=== PATIENT | male | born 1940 | race Caucasian/White ===

== ENCOUNTER 2018-02-24 10:14 | Emergency (ER) | payer MEDICARE, OTHER ==
[2018-02-24 10:41] VITALS: BP 159/82
--- NOTE | 2018-02-24 10:46 | UC ---
UC General HPI - HPI Summary HPI Summary: 78-year-old male presents with onset of left-sided numbness and tingling at 5 PM last evening after shoveling some snow. States he still continues to have the numbness and tingling at present. Denies headache, dizziness, visual changes, speech difficulties, extremity weakness, confusion, chest pain, palpitations, shortness of breath, abdominal pain, nausea, vomiting, diaphoresis. Past medical history significant for hypertension and dyslipidemia. Family history significant for mother with AAA. - History of Current Complaint Chief Complaint: UCGeneralIllness Stated Complaint: LEFT SIDE OF BODY NUMB/TINGLING Time Seen by Provider: 02/24/18 10:28 Hx Obtained From: Patient Onset/Duration: Sudden Onset, Lasting Hours Pain Intensity: 0 Associated Signs & Symptoms: Negative: Abdominal Pain, Back Pain, Cough, Chest Pain, Dizziness, Diaphoresis, Fever, Headache, Nausea, Palpitations, Syncope, Vomiting, Weakness - Allergy/Home Medications Allergies/Adverse Reactions: Allergies Allergy/AdvReac Type Severity Reaction Status Date / Time No Known Allergies Allergy Verified 02/24/18 10:19 Home Medications: Home Medications Atorvastatin* [Lipitor*] mg PO DAILY 02/24/18 [History] Ibuprofen TAB* [Advil TAB*] 400 mg PO BEDTIME 02/24/18 [History Confirmed ] Lisinopril [Lisinopril 2.5 MG-] mg PO DAILY 02/24/18 [History] Vitamin THERAPEUTIC TAB* [Theragran TAB*] 1 tab PO DAILY 02/24/18 [History Confirmed 02/24/18] diPHENhydraMINE PO* [Benadryl PO 25 MG TAB*] 25 mg PO BEDTIME 02/24/18 [History Confirmed 02/24/18] PMH/Surg Hx/FS Hx/Imm Hx Previously Healthy: Yes Endocrine History: Dyslipidemia Cardiovascular History: Hypertension - Surgical History Surgical History: Yes Surgery Procedure, Year, and Place: L4L5 Discectomy and Laminectomy; Prostatectomy; Cholecystectomy; Appendectomy - Family History Family History: AAA (mother) - Social History Occupation: Retired Lives: With Family Alcohol Use: Unknown Substance Use Type: None Smoking Status (MU): Former Smoker Review of Systems All Other Systems Reviewed And Are Negative: Yes Constitutional: Negative: Fever, Chills Skin: Negative: Rash Eyes: Negative: Blurred Vision, Diplopia, Photophobia Respiratory: Negative: Shortness Of Breath, Cough Cardiovascular: Negative: Palpitations, Chest Pain Gastrointestinal: Negative: Abdominal Pain, Vomiting, Nausea Neurological: Positive: Paresthesia, Numbness. Negative: Headache, Weakness Is Patient Immunocompromised?: No Physical Exam - Summary Physical Exam Summary: GENERAL APPEARANCE: Well developed, well nourished, alert and cooperative, and appears to be in no acute distress. HEAD: Atraumatic. normocephalic. EYES: PERRL, EOM intact. Vision is grossly intact. EARS: External auditory canals and tympanic membranes clear, hearing grossly intact. NOSE: No nasal discharge. THROAT: Oral cavity and pharynx normal. No inflammation, swelling, exudate, or lesions. Teeth and gingiva in good general condition. NECK: Neck supple, non-tender without lymphadenopathy. CARDIAC: Normal S1 and S2. No S3, S4 or murmurs. Rhythm is regular. There is no peripheral edema, cyanosis or pallor. Extremities are warm and well perfused. Capillary refill is less than 2 seconds. LUNGS: Clear to auscultation and percussion without rales, rhonchi, wheezing or diminished breath sounds. ABDOMEN: Positive bowel sounds. Soft, nondistended, nontender. No guarding or rebound. No masses or hepatosplenomegally. MUSKULOSKELETAL: ROM intact to all extremities. No joint erythema or tenderness. Normal muscular development. Normal gait. NEUROLOGICAL: CN II-XII intact. Strength and sensation symmetric and intact throughout. Reflexes 2+ throughout. Cerebellar testing normal. SKIN: Skin normal color, texture and turgor with no lesions or eruptions. Vital Signs: Initial Vital Signs Temp 97.8 F 02/24/18 10:35 Pulse 75 02/24/18 10:35 Resp 18 02/24/18 10:35 BP 159/82 02/24/18 10:35 Pulse Ox 97 02/24/18 10:35 Diagnostics - EKG Cardiac Rate: NL Cardiac Rhythm: Sinus: Normal Ectopy: None ST Segment: Normal Course/Dx - Course Course Of Treatment: 78-year-old male presents with onset of left-sided numbness and tingling at 5 PM last evening after shoveling some snow. States he still continues to have the numbness and tingling at present. Denies headache, dizziness, visual changes, speech difficulties, extremity weakness, confusion, chest pain, palpitations, shortness of breath, abdominal pain, nausea , vomiting, diaphoresis. Past medical history significant for hypertension and dyslipidemia. Family history significant for mother with AAA. 12 lead EKG NSR. Vital signs stable. Exam was unremarkable except for a reported sensory deficit on the left side. Based on his symptoms and I'm recommending that he be evaluated in the emergency room for possible CVA. He and his are electing to go by private vehicle with his driving. - Differential Dx - Multi-Symptom Differential Diagnoses: Cardiac Ischemia, CVA, Other - Diagnoses Provider Diagnosis: Left sided numbness Discharge - Sign-Out/Discharge Documenting (check all that apply): Patient Departure All imaging exams completed and their final reports reviewed: No Studies - Discharge Plan Condition: Stable Disposition: HOME-RECOMMEND TO ED Patient Education Materials: Paresthesia (ED) Referrals: Aston Templeton DO [Primary Care Provider] - Additional Instructions: Based on your symptoms I am recommending that you be urgently evaluated in the emergency room. Please go directly to the emergency room. - Billing Disposition and Condition Condition: STABLE Disposition: Home-Recommend to ED - Attestation Statements Provider Attestation: I was available for consult. This patient was seen by the LOREN[facility]. The patient was not presented to, seen by, or examined by me. -Edwin
== END 2018-02-24 10:57 | disposition home health service (06) ==
LOC: UCCORT 10:14
DX: R20.0 Anesthesia of skin (principal); E78.5 Hyperlipidemia, unspecified; I10 Essential (primary) hypertension; Z87.891 Personal history of nicotine dependence
CPT/HCPCS: 93005; 99202; G0463

== ENCOUNTER 2018-02-24 14:17 | Observation (INO) | payer MEDICARE, OTHER ==
[2018-02-24 14:54] LABS: Hematocrit 43 % (42-52); Hemoglobin 14.5 g/dl (14.0-18.0); Mean Corpuscular HGB Conc 34 g/dl (31-36); Mean Corpuscular Hemoglobin 31 pg (27-31); Mean Corpuscular Volume 93 fL (80-94); Mean Platelet Volume 8.2 fL (7.4-10.4); Platelet Count 179 10^3/ul (150-450); Red Blood Count 4.64 10^6/ul (4.00-5.40); Red Cell Distribution Width 13 % (10.5-15); White Blood Count 6.6 10^3/ul (3.5-10.8)
--- NOTE | 2018-02-24 15:05 | ED ---
Neurological HPI - HPI Summary HPI Summary: A 78 year old male brought in by ambulance presents to [facility] with a chief complaint of left sided numbness since 17:00 02/23/18 when he came inside after shoveling snow. He rates his current pain as 0/10. At 14:40 The patient also endorses left sided tingling. He denies DUVAL, neck pain, difficulty swallowing, blurred vision, slurred speech, Fever, Chills, Erythema (eyes), Sore throat, Chest pain, Shortness of Breath, Cough, Abdominal pain, Vomiting, Nausea, Dysuria, Hematuria, Edema, Rash and Dizziness. He has Hx of HTN. His medical record from [place] showed that his Head CT and labs were unremarkable and his BP was 190/88. He claims that his usual BP is 150/60. He denies a FHx of CVA or sz. He claims that 20 years ago he quit smoking. He denies being on bloodthinners. He was given a baby aspirin CHARGE NURSE. He has no FHx fo CVA or sz. He admits to having surgery for cataract removal. - History of Current Complaint Chief Complaint: EDNeurologicalDeficit Stated Complaint: LT SIDE NUMBNESS Time Seen by Provider: 02/24/18 14:20 Hx Obtained From: Patient, Family/Inside Sales Consultant Onset/Duration: Sudden Onset, Started days ago, Still Present Timing: Constant Onset Severity: Moderate Current Severity: Moderate Seizure Severity: Moderate Pain Intensity: 0 Pain Scale Used: 0-10 Numeric Character: Numbness/Tingling - Allergy/Home Medications Allergies/Adverse Reactions: Allergies Allergy/AdvReac Type Severity Reaction Status Date / Time No Known Allergies Allergy Verified 02/24/18 10:19 PMH/Surg Hx/FS Hx/Imm Hx Cardiovascular History: Reports: Hx Hypertension - Cancer History Cancer Type, Location and Year: Prostate 2007 - Surgical History Surgery Procedure, Year, and Place: L4L5 Discectomy and Laminectomy; Prostatectomy; Cholecystectomy; Appendectomy Infectious Disease History: Yes Infectious Disease History: Denies: Traveled Outside the [place] in Last 30 Days - Family History Known Family History: Negative: Seizure Disorder, Other - CVA Family History: AAA (mother) - Social History Alcohol Use: Occasionally Substance Use Type: Reports: None Smoking Status (MU): Never Smoked Tobacco Review of Systems Negative: Fever, Chills Negative: Blurred Vision Negative: Sore Throat Negative: Chest Pain Negative: Shortness Of Breath, Cough Negative: Abdominal Pain, Vomiting, Nausea Negative: dysuria, hematuria Negative: Myalgia - back pain, Edema Negative: Rash Neurological: Negative - difficulty swallowing Positive: Paresthesia - left sided, Numbness - left sided. Negative: Slurred Speech All Other Systems Reviewed And Are Negative: Yes Physical Exam - Summary Physical Exam Summary: Constitutional: Well-developed, Well-nourished, Alert. (-) Distressed Skin: Warm, Dry HENT: Normocephalic; Atraumatic Eyes: Conjunctiva normal Neck: Musculoskeletal ROM normal neck. (-) JVD, (-) Stridor, (-) Tracheal deviation Cardio: Rhythm regular, rate normal, Heart sounds normal; Intact distal pulses; The pedal pulses are 2+ and symmetric. Radial pulses are 2+ and symmetric. (-) Murmur Pulmonary/Chest wall: Effort normal. (-) Respiratory distress, (-) Wheezes, (-) Rales Abd: Soft. (-) Tenderness, (-) Distension, (-) Guarding, (-) Rebound Musculoskeletal: (-) Edema Lymph: (-) Cervical adenopathy Neuro: Alert, Oriented x3, Sensory weakness to left foot. Psych: Mood and affect Normal Triage Information Reviewed: Yes Vital Signs On Initial Exam: Initial Vitals Temp Pulse Resp BP Pulse Ox 99 F 83 22 185/99 94 02/24/18 14:22 02/24/18 14:22 02/24/18 14:22 02/24/18 14:22 02/24/18 14:22 Vital Signs Reviewed: Yes Diagnostics - Vital Signs Vital Signs Temp Pulse Resp BP Pulse Ox 02/24/18 14:24 79 19 185/99 94 02/24/18 14:23 71 21 183/109 94 02/24/18 14:22 99 F 83 22 185/99 94 - Laboratory Result Diagrams: 02/24/18 14:45 02/24/18 14:45 Lab Statement: Any lab studies that have been ordered have been reviewed, and results considered in the medical decision making process. - EKG 14:56 Cardiac Rate: NL - 78 EKG Rhythm: Sinus Rhythm Summary of EKG Findings: NSR at 78 bpm NIH Scale - NIH Scale Level of Consciousness: Alert/Keenly Responsive Ask Patient the Month and His/Her Age: Both Correct Ask Pt to Open/Close Eyes and Waiter/Waitress Second Class/Release Non-Paretic Hand: Both Correctly Best Gaze (Only Horizontal Eye Movement): Normal Visual Field Testing: No Visual Loss Facial Paresis-Pt to Smile & Close Eyes or Grimace Symmetry: Normal/Symmetrical Motor Function - Right Arm: No Drift-Holds 10 Seconds Motor Function - Left Arm: No Drift-Holds 10 Seconds Motor Function - Right Leg: No Drift-Holds 10 Seconds Motor Function - Left Leg: No Drift-Holds 10 Seconds Limb Ataxia-Must be out of Proportion to Weakness Present: Absent Sensory (Use Pinprick to Test Arms/Legs/Trunk/Face): Pinprick Less on Affected Best Language (Describe Picture, Name Items): No Aphasia Dysarthria (Read Several Words): Normal Extinction and Inattention: No Abnormality Total Score: 1 Course/Dx - Course Course Of Treatment: A 78 year old male brought in by ambulance presents to [facility] with a chief complaint of left sided numbness since 17:00 02/23/18 when he came inside after shoveling snow. He rates his current pain as 0/10. At 14: 40 The patient also endorses left sided tingling. He denies DUVAL, neck pain, difficulty swallowing, blurred vision, slurred speech, Fever, Chills, Erythema ( eyes), Sore throat, Chest pain, Shortness of Breath, Cough, Abdominal pain, Vomiting, Nausea, Dysuria, Hematuria, Edema, Rash and Dizziness. He has Hx of HTN. His medical record from [place] showed that his Head CT and labs were unremarkable and his BP was 190/88. He claims that his usual BP is 150/60. He denies a FHx of CVA or sz. He claims that 20 years ago he quit smoking. He denies being on bloodthinners. He was given a baby aspirin CHARGE NURSE. He has no FHx fo CVA or sz. He admits to having surgery for cataract removal. NIH scale was 1 with sensory weakness to left foot. His EKG showed NSR at 78 bpm. After reviewing the patients imaging results Dr. Maldonado recommended the [place] [facility] [place] Dx: CVA, uncontrolled HTN. - Diagnoses Provider Diagnoses: CVA (cerebral vascular accident), Uncontrolled hypertension - Physician Notifications Discussed Care Of Patient With: Haydee Maldonado Time Discussed With Above Provider: 18:30 Instructed by Provider To: Other - Discussed patients results. He recommends [place] [facility] [place] Discharge - Sign-Out/Discharge Documenting (check all that apply): Patient Departure - Admit - Discharge Plan Condition: Stable Disposition: ADMITTED TO [facility] - Attestation Statements Document Initiated by Scribe: Yes Documenting Scribe: Gregorio Man Provider For Whom Scribe is Documenting (Include Credential): Gustavo Celaya MD Scribe Attestation: IGregorio, scribed for Gustavo Celaya MD on 02/24/18 at 2318.
[2018-02-24 15:16] LABS: EGFR Non-African American 61.3 (>60)
[2018-02-24] MEDS ORDERED: Acetaminophen TAB* 325 MG PO PRN (17:17)
[2018-02-24] MEDS ORDERED: Al Hydrox/Mg Hydrox/Simet LIQ* 30 ML UDC PO PRN (17:17)
[2018-02-24] MEDS ORDERED: diPHENhydraMINE PO* 25 MG PO SCH (21:00)
[2018-02-24] MEDS: Heparin VIAL(*) 5000 UNITS/ML VIAL (FIVE THOUSAND) SUBCUT SCH (21:47)
--- NOTE | 2018-02-24 23:20 | HP ---
CC: Dr. Aston Templeton * HISTORY AND PHYSICAL: DATE OF ADMISSION: 02/24/18 PROVIDER: Kenia Appiah NP PRIMARY CARE PROVIDER: Dr. Aston Templeton. ATTENDING PHYSICIAN WHILE IN THE HOSPITAL: Dr. Keisha Godinez * (dictated by Kenia Appiah NP). CHIEF COMPLAINT: Left-sided numbness and tingling. HISTORY OF PRESENT ILLNESS: Mr. Wheat is a 78-year-old male with a past medical history significant for hypertension, hyperlipidemia and a history of prostate cancer, who was seen and evaluated at [facility] today and given the fact that they did not have Neurology on staff, he was transferred here for further evaluation. His CT of the head at [place] did show a lacunar stroke. The patient reports that yesterday he was in his normal state of health. He was shoveling snow and after he completed shoveling the snow he noticed that he had some numbness and tingling to his left arm that progressively got worse and became left-sided numbness. The patient reports that it feels as though his body is cut in half and has numbness and tingling, sensory loss on the entire left side of his body. He denies any difficulty speaking. Denies any difficulty swallowing or eating. He denies any loss of motor sensation to the left side. He denies any recent illnesses or sick contacts. Given his symptoms of the left-sided numbness and tingling, he was transferred from [facility] to our emergency room for further evaluation as they did not have Neurology on staff. PAST MEDICAL HISTORY: Significant for: 1. Hypertension. 2. Hyperlipidemia. 3. History of prostate cancer. PAST SURGICAL HISTORY: 1. Prostatectomy. 2. Appendectomy. 3. Cholecystectomy. 4. Back surgery. 5. Cataract surgery and lens implants. HOME MEDICATIONS: Include: 1. Lisinopril 5 mg p.o. daily. 2. Ibuprofen 400 mg p.o. at bedtime. 3. Atorvastatin 20 mg p.o. daily. 4. Benadryl 25 mg p.o. at bedtime. 5. Theragran multivitamin 1 tab p.o. daily. ALLERGIES: The patient has no known drug allergies. FAMILY HISTORY: No reported history of coronary artery disease or strokes. Father with a history of diabetes. Brother with a history of kidney cancer. SOCIAL HISTORY: He reports he quit smoking approximately 20 years ago. He does report daily alcohol use. Denies any illicit drug use. He is . Surrogate decision maker in the event he is unable to make his own decisions is his , Prema. Her phone number is [phone]. He is a full code. REVIEW OF SYSTEMS: There was no documented fever. There has been no significant weight change. No double vision. There has been no ear drainage, no rhinorrhea, and no sore throat. No chest pain. No orthopnea or nocturnal dyspnea. There was no abdominal pain. No nausea, vomiting, or diarrhea. Denies any dysuria or urinary frequency. No seizures or loss of consciousness. No pruritus or skin ulcerations. He does complain of sensory loss on the left side and numbness and tingling to the left side of his body as well as his left eye does feel tired. PHYSICAL EXAMINATION GENERAL: At this time, Mr. Wheat is a 78-year-old male with a past medical history significant for hypertension, hyperlipidemia and history of prostate cancer, who was transferred from [facility] for further evaluation of left-sided numbness and tingling. He was found to have a lacunar stroke on the CT scan. At this point, he does not appear to be in any acute distress. VITAL SIGNS: Blood pressure was 146/93, heart rate was 78, respirations were 13 , temperature was 99. HEENT: Head is atraumatic, normocephalic. Eyes: EOMs are intact. Sclerae anicteric and not pale. Pupils are equal and reactive to light. Oral mucosa appears to be moist. Tongue is midline. No oropharyngeal erythema. NECK: Supple. LUNGS: Clear to auscultation bilaterally. No wheezes, rales, or rhonchi. CARDIAC: S1, S2. Regular rate and rhythm. No murmurs, rubs, or gallops. ABDOMEN: Soft and nontender. Bowel sounds are present x4. EXTREMITIES: He is able to move all 4 extremities with 5/5 strength. Pedal pulses are +2 bilaterally. Radial pulses are +2 bilaterally. NEUROLOGIC: He is awake, alert, and oriented x3. Handgrips are equal. Tongue is midline. Speech is clear. There are no gross focal deficits noted. He does have sensory deficit on the left side from his head to his toes. He reports a feeling of tingling and numbness. Pupils are 2 mm and equal bilaterally. Smile is equal. [id number] is intact. Ylri-da-oipu is intact. Shoulder shrug is intact. There are no gross focal deficits noted. SKIN: Intact. DIAGNOSTIC STUDIES/LAB DATA: WBCs were 6.6, RBCs 4.64, hemoglobin of 14.5, hematocrit was 43, platelet count 179. Sodium 139, potassium 4.0, chloride 107 , carbon dioxide was 24, anion gap was 8, BUN was 25, creatinine 1.15, glucose was 104, calcium 9.1, magnesium 1.9. Total bili was 0.80, ASTs were 28, ALTs were 23. Troponin 0.01. He did have a CT of the head at [facility]. Carotid Doppler is currently pending. EKG shows sinus rhythm at a rate of 78. ASSESSMENT AND PLAN: At this time, Mr. Wheat is a 78-year-old male with a past medical history significant for hypertension, hyperlipidemia and history of prostate cancer, who was transferred from [facility] for further evaluation of a lacunar stroke. We were asked to see and evaluate him due to his stroke. He will be admitted under observation for: 1. Cerebrovascular accident. He has lacunar stroke. He was seen and evaluated by Dr. Maldonado from Neurology during his stay in the emergency room. We will continue on aspirin 81 mg p.o. daily. He will have an MRI of the brain and an MRA. He will have bilateral carotid ultrasounds. We will get a transthoracic echo with a bubble study tomorrow. We will continue on aspirin 81 mg p.o. daily, atorvastatin 20 mg p.o. daily and follow with Dr. Maldonado's recommendations. He will have neuro checks q.2 hours. 2. Hypertension. We will continue on lisinopril 5 mg p.o. daily. 3. Hyperlipidemia. We will continue his atorvastatin 20 mg p.o. daily. I will repeat a lipid panel in the a.m. 4. FEN: He can have a heart-healthy diet. 5. DVT prophylaxis: I will place him on heparin subcu after the MRI and conclusion of no bleed. 6. Code status: He is a full code. TIME SPENT: Time spent on this admission was 60 minutes, greater than half of that time was spent [id number] with the patient obtaining my history and physical, the other half of the time was spent going over my plan of care and implementing my plan of care. I have discussed this with my attending, Dr. Keisha Godinez; she is in agreement with my plan. KENIA APPIAH, SYSTEMS PROJECT MANAGER [id number]/[facility] #: [id number] [place]
--- NOTE | 2018-02-24 23:20 | CONS ---
CONSULTATION NOTE: DATE OF CONSULT: 02/24/18 CONSULTING PROVIDER: Dr. Celaya. REASON FOR CONSULT: Left-sided numbness. CHIEF COMPLAINT: Left face, arm, leg numbness. HISTORY OF PRESENT ILLNESS: Mr. Hung Wheat is a pleasant 78-year-old right- handed man with a past medical history significant for hypertension, dyslipidemia, former tobacco use, who presented with sudden onset of left-sided numbness and tingling sensation. The patient was last known well at 1655 on . At 1700, the patient developed sudden onset numbness and a tingling sensation of the left arm and it progressed to involve the entire left side of the face and entire left leg at approximately 1800. He was shoveling snow during that time. His blood pressure has been running in the systolics of 150s- 160s. He is aspirin naive. The patient woke up this morning today and went to [facility] for further evaluation. He wanted to see if he can get into see Dr. Paiz at the office, but instead was transferred to [facility] for further evaluation. NIH Stroke Scale was 1 for decreased sensation on the left face, arm, and leg with a positive hyper-paresthesias. The patient denied any headaches, visual disturbance, neck pain, chest pain, shortness of breath, abdominal discomfort, nausea, vomiting, impairment in his bowel or bladder functions. He denied any weakness. A CT head at [facility] was reported to be unremarkable. We do not have any intracranial images available at this time. PAST MEDICAL HISTORY: Hypertension, dyslipidemia. PAST SURGICAL HISTORY: Prostatectomy, appendectomy, lumbar spine laminectomy, tonsillectomy, cataract surgery, cholecystectomy. MEDICATIONS: 1. Vitamin supplements 1 tablet by mouth daily. 2. Lisinopril 5 mg by mouth daily. 3. Atorvastatin 20 mg by mouth daily. 4. Benadryl 25 mg p.o. at bedtime. 5. Ibuprofen 400 mg p.o. at bedtime. ALLERGIES: No known drug allergies. FAMILY HISTORY: There is no family history of stroke or seizures. His father of congestive heart failure and mother after an abdominal aortic rupture. SOCIAL HISTORY: The patient is retired. 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 REVIEW OF SYSTEMS: A 14-point review of systems was obtained and otherwise negative except for what was mentioned in the HPI. PHYSICAL EXAM: Vitals: Temperature 99.0, heart rate 83, respiratory rate 22, oxygen saturation of 94, blood pressure of 185/99. General: Well-nourished, well- developed man, in no acute distress. Head is atraumatic, normocephalic. Eyes: Conjunctivae/corneas are clear. Neck is supple and symmetrical with no carotid bruits. Lungs are clear to auscultation bilaterally. Cardiovascular: Regular rate and rhythm with normal S1, S2. Radial pulses are palpable. Extremities: Normal range of motion with no cyanosis. Skin: No skin lesions or lacerations. Psych: Affect is broad and normal mood. Easy to establish rapport. Neurological Examination: Mental Status: Awake, alert, and oriented to person, place, time, and general circumstances. Speech and language including expression, naming, repetition, and comprehension were assessed and found to be normal. Cranial Nerves: Normal confrontation testing bilaterally. Pupils are mid range and reactive to light. Normal consensual response. Sensation is intact on the forehead, cheeks, and jaw region bilaterally. There is no facial droop. He is able to hear throughout the history process. Symmetrical palatal elevation. Normal strength against resistance. Tongue is symmetrical and midline with no atrophy or fasciculation. Motor Examination: No abnormal movements, but there is positive pronator drift on the left. Normal bulk and tone throughout. 5/5 strength in the proximal and distal upper and lower extremities. Reflexes: Right/left, brachioradialis 1/1, biceps 1/1, triceps 1/1, patella 1/1, ankle 1/1, plantar flexor/flexor. Sensation is intact to light touch and pinprick throughout except for he has a distal to proximal sensory gradient in the mid shins bilaterally. He has absent vibratory sensation at the great toes and medial malleolus, but intact proprioception at the great toes. Coordination: Normal [id number] and rapid alternating movements. Gait did not assess as the patient is in critical bay in the emergency department. DIAGNOSTIC STUDIES/LAB DATA: WBC of 6.6, hemoglobin 14.5, hematocrit 43, platelets of 179. Potassium 4.0, sodium 139, chloride 107, carbon dioxide of 24 , BUN of 25, creatinine 1.15, glucose of 104. Electrocardiogram that was done today showed there was normal sinus rhythm. IMPRESSION: 1. Mr. Hung Wheat is a 78-year-old man with history of hypertension and dyslipidemia, who presented with sudden-onset left hemiparesthesias. I suspect the patient has a right thalamic ischemic infarction involving an occlusion to the small perforating vessels. Other localizing areas would be possibly the right parietal hemisphere, but that typically does not cause symmetrical paresthesias in the contralateral limb. He has no history of neck pain, hence it is unlikely that this can be related to a cervical spondylosis with radiculopathy. He has no evidence of myelopathy on examination. I do not suspect that he has sensory seizures as he has no risk factors for epilepsy. NIH Stroke Scale is 1. He was not a candidate for IV tPA or mechanical thrombectomy as he is outside the therapeutic window and his deficits are extremely mild. This type of stroke is mostly related due to chronic hypertension. 2. Chronic hypertension. He takes lisinopril at home. 3. Dyslipidemia. PLAN/RECOMMENDATIONS: Admit to the hospital service for further stroke workup and poststroke monitoring. Neuro checks every 4 hours. I have ordered an MRI of the brain without contrast, MRA of the head without contrast, and a carotid sonogram. I also ordered a 2D transthoracic echo with bubble study. Please place on telemetry. Check a fasting lipid panel, TSH, B12, and A1c level. He is aspirin naive, so we will start him on aspirin 81 mg starting tomorrow. He had received aspirin 325 at [place]. Please do a bedside swallow evaluation. Consult PT/OT to evaluate and treat. Allow for permissive hypertension with a systolic blood pressure of less than 220 and diastolic blood pressure less than 110. We discussed stroke education and counseling with the patient and his spouse, Prema, at bedside. We discussed the importance in controlling his blood pressure. Please do not place a urinary catheter unless there is evidence of urinary retention. VTE prophylaxis with subcutaneous heparin injection 5000 units t.i.d. There is no indication for anticoagulation therapy since the patient does not have evidence of atrial fibrillation; however, further evaluation with an echo to look for any atrial thrombus was recommended. I have discussed the above-mentioned recommendations with Mr. Wheat, his spouse Prema, and Kenia, who will be the admitting provider. The all agreed with the above recommendations. I will continue to follow. [id number]/[facility] #: [id number] CHAVA
--- NOTE | 2018-02-25 00:01 | PN ---
Progress Note - Progress Note Date of Service: 02/25/18 Note: Paged for new neuro findings - now with protonator drift. Will check head ct. Already being managed for CVA
[2018-02-25] MEDS: Heparin VIAL(*) 5000 UNITS/ML VIAL (FIVE THOUSAND) SUBCUT SCH ×2 (05:30→14:27)
[2018-02-25 06:12] LABS: ABS Basophils 0 10^3/ul (0-0.2); ABS Eosinophils 0.2 10^3/ul (0-0.6); ABS Lymphocytes 1.3 10^3/ul (1.0-4.8); ABS Monocytes 0.5 10^3/ul (0-0.8); ABS Neutrophils 3.7 10^3/ul (1.5-7.7); ABS Nucleated RBC 0 10^3/ul; Eosinophil % 2.7 %; Hematocrit 42 % (42-52); Hemoglobin 13.8 g/dl (14.0-18.0); Lymphocyte % 23.4 %; Mean Corpuscular HGB Conc 33 g/dl (31-36); Mean Corpuscular Hemoglobin 31 pg (27-31); Mean Corpuscular Volume 94 fL (80-94); Mean Platelet Volume 8.3 fL (7.4-10.4); Nucleated Red Blood Cells % 0.1; Platelet Count 146 10^3/ul (150-450); Red Blood Count 4.42 10^6/ul (4.00-5.40); Red Cell Distribution Width 13 % (10.5-15); White Blood Count 5.8 10^3/ul (3.5-10.8)
[2018-02-25 06:28] LABS: EGFR Non-African American 62.6 (>60)
[2018-02-25] MEDS ORDERED: Vitamin THERAPEUTIC TAB PO SCH (09:00)
[2018-02-25] MEDS ORDERED: Aspirin EC TAB* 81 MG TAB.EC PO SCH (09:00)
[2018-02-25] MEDS ORDERED: Lisinopril TAB* 5 MG PO SCH (09:00)
[2018-02-25] MEDS ORDERED: Atorvastatin* 20 MG TAB PO SCH (09:00)
[2018-02-25] MEDS ORDERED: Clopidogrel TAB* 75 MG PO SCH (09:00)
[2018-02-25 11:42] VITALS: BP 149/86
--- NOTE | 2018-02-25 12:36 | ECHO ---
Patient: CHRISTIE LOMBARDO [facility] Rec#: [id number] : 1940 Date: 02/25/2018 Age: 78y Height: 185 cm / 72.8 in Weight: 90.7 kg / 199.9 lbs Sex: M BSA: 2.15 Room#: 440 Admit Date#: 02/24/2018 Type: Inpatient Referring: Aston Templeton DO Reading: Clemente Laureano DO Supervisor Assembly Room: Swapna Oreilly RDCS CC: Haydee Maldonado Transthoracic Echocardiogram Indication: CVA BP: 155/86 HR: 75 Rhythm: NSR Findings History: HLD, HTN. Technical Comments: The study quality is good. Completed at 1110. Left Ventricle: The left ventricular chamber size is normal. Mild concentric left ventricular hypertrophy is observed. Global left ventricular wall motion and contractility are within normal limits. Left ventricular systolic function is at the lower limits of normal. The estimated ejection fraction is 50-55%. Abnormal left ventricular diastolic function is observed. Left Atrium: The left atrium is mildly dilated. Right Ventricle: The right ventricular chamber size and systolic function are within normal limits. Right Atrium: The right atrium is mildly dilated. Interatrial septum appears intact without evidence of shunting. The bubble study is negative. A patent foramen ovale is not demonstrated with color Doppler and agitated contrast. Aortic Valve: The aortic valve is trileaflet. The aortic valve leaflets are mildly thickened. There is trace to mild aortic regurgitation. There is no evidence of aortic stenosis. Mitral Valve: The mitral valve leaflets are mildly thickened. There is trace to mild mitral regurgitation. There is no evidence of mitral stenosis. Tricuspid Valve: The tricuspid valve leaflets are normal. There is trace tricuspid regurgitation. Unable to estimate the right ventricular systolic pressure. There is no tricuspid stenosis. Pulmonic Valve: The pulmonic valve appears normal. There is a trace pulmonic regurgitation. There is no pulmonic stenosis. Pericardium: There is no significant pericardial effusion. Aorta: There is mild dilatation of the ascending aorta. There is no dilatation of the aortic arch. The aortic root is normal in size. Pulmonary Artery: The main pulmonary artery is not well visualized. Venous: The inferior vena cava appears normal in size. There is a greater than 50% respiratory change in the inferior vena cava dimension. Contrast: Normal saline was used as contrast for the bubble study. Images 1 and 2. Intravenous contrast was used to help determine presence of intracardiac shunting. Conclusions The left ventricular chamber size is normal. Mild concentric left ventricular hypertrophy is observed. Global left ventricular wall motion and contractility are within normal limits. Left ventricular systolic function is at the lower limits of normal. The estimated ejection fraction is 50-55%. The left atrium is mildly dilated. The right ventricular chamber size and systolic function are within normal limits. No significant valvular abnormalities noted The bubble study is negative. There is mild dilatation of the ascending aorta. None prior for comparison at time of interpretation Measurements Name Value Normal Range RVIDd (AP) 2D 3.2 cm (0.9 - 2.6) RVDdMajor (2D) 4.9 cm (2.2 - 4.4) RA (A4C)W 3.9 cm (2.9 - 4.6) IVSd (2D) 1.2 cm (0.6 - 1) LVPWd (2D) 1.2 cm (0.6 - 1) LVIDd (2D) 5.3 cm (3.6 - 5.4) LVIDs (2D) 3.8 cm - LV FS (2D) 27 % (25 - 45) Aortic Annulus 2.4 cm (1.4 - 2.6) Ao root diameter (2D) 3.5 cm (2.1 - 3.5) Ascending Ao 3.7 cm (2.1 - 3.4) Aortic arch 2.4 cm (1.8 - 3.4) LA dimension (AP) 2D 3.9 cm (2.3 - 3.8) LAd ISD 4CH 6.1 cm (2.9 - 5.3) LA ISD 4CH W 4.6 cm (2.5 - 4.5) Name Value Normal Range LA ESV BP (A/L) index 28 ml/m2 - Name Value Normal Range MV E-wave Vmax 0.4 m/sec - MV deceleration time 268 msec - MV A-wave Vmax 0.8 m/sec - MV E:A ratio 0.5 ratio - LV septal e' Vmax 0.05 m/sec - LV lateral e' Vmax 0.07 m/sec - LV E:e' septal ratio 8 ratio - LV E:e' lateral ratio 5.7 ratio - Name Value Normal Range AV Vmax 1.3 m/sec - AV VTI 27 cm - AV peak gradient 7 mmHg - AV mean gradient 4 mmHg - LVOT Vmax 0.8 m/sec - LVOT VTI 16.1 cm - LVOT peak gradient 3 mmHg - LVOT mean gradient 1 mmHg - GAIL Vmax 0.6 m/sec - Name Value Normal Range IVC diameter 1.8 cm - Name Value Normal Range PV Vmax 0.8 m/sec - PV peak gradient 3 mmHg -
--- NOTE | 2018-02-25 12:54 | PN ---
Subjective Date of Service: 02/25/18 Length of Stay: 1 Days Neurology is following Mr. Wheat for the evaluation and management of stroke. Interval History: He continues to have constant numbness sensation on the left side of face, arm and leg. He has no headache, visual disturbance, chest pain, or paresthesia. Overnight, there was a concern of a left arm drift. I documented the drift on my examination earlier in the day. The patient had a repeat CT head early in the morning which was unremarkable. Review of Systems: Denied CP, SOB, or palpitations. Objective Active Medications: Acetaminophen (Tylenol Tab*) 650 mg PO Q4H PRN PRN Reason: FEVER/PAIN Al Hydrox/Mg Hydrox/Simethicone (Maalox Plus*) 30 ml PO Q6H PRN PRN Reason: INDIGESTION Aspirin (Aspirin Ec Tab*) 81 mg PO DAILY [facility] Last Admin: 02/25/18 08:12 Dose: 81 mg Atorvastatin Calcium (Lipitor*) 80 mg PO DAILY [facility] Clopidogrel Bisulfate (Plavix Tab*) 75 mg PO DAILY [facility] Last Admin: 02/25/18 09:44 Dose: 75 mg Diphenhydramine HCl (Benadryl Po*) 25 mg PO BEDTIME [facility] Last Admin: 02/24/18 21:47 Dose: 25 mg Heparin Sodium (Porcine) (Heparin Vial(*)) 5,000 units SUBCUT Q8HR [facility] Last Admin: 02/25/18 05:30 Dose: 5,000 units Lisinopril (Prinivil Tab*) 5 mg PO DAILY [facility] Last Admin: 02/25/18 08:12 Dose: 5 mg Multivitamins (Theragran Tab*) 1 tab PO DAILY [facility] Last Admin: 02/25/18 08:11 Dose: 1 tab Vital Signs - 12 hr Temp Pulse Resp BP Pulse Ox 02/25/18 11:21 98.3 F 91 16 149/86 95 02/25/18 07:51 98.1 F 73 16 154/90 95 02/25/18 07:15 20 02/25/18 03:40 98.0 F 74 20 155/86 95 Intake and Output Last 24 Hours 02/23/18 02/24/18 02/25/18 02/26/18 06:59 06:59 06:59 06:59 Intake Total 50 Balance 50 Weight 200 lb Intake: Oral 50 Other: Estimated Void Medium # Bowel Movements 0 # Voids 2 Oxygen Devices in Use Now: None Neurology Exam: General: Well appearing man in no acute distress. HEENT: Normocephelic/atraumatic, sclera anicteric, mucous membranes moist Neck: Supple Chest: Clear to auscultation bilaterally Cardiovascular: Regular rate and rhythm without murmurs, rubs, gallops Abdomen: Soft, nontender/nondistended Extremities: No clubbing, cyanosis, or edema Neurological Findings: Awake, alert, oriented to self, place, time and general circumstances. Speech: fluent without dysarthric, repetition intact Cranial Nerve: PEERL, EOM intact, VFF, no nystagmus, face symmetric bilaterally , facial sensation intact, hearing intact to finger rub bilaterally, palate elevates symmetrically, tongue midline, SCM and Trapezius s/s. Motor: s/s throughout, proximal and distal extremities x4 tone/bulk normal Sensation: reduced sensation to light-touch and pin on the left face, arm and leg. Deep Tendon Reflex: 2+ symmetric in the upper/lower extremities, Babinski - down going Finger to nose, rapid alternating movements intact without tremor, no dysdiadochokinesia Gait: intact with good arm swing and stride Result Diagrams: 02/25/18 05:54 02/25/18 05:54 Additional Lab and Data: Laboratory Results - last 24 hr 02/24/18 02/24/18 02/24/18 14:45 14:45 15:45 WBC 6.6 RBC 4.64 Hgb 14.5 Hct 43 MCV 93 MCH 31 MCHC 34 RDW 13 Plt Count 179 MPV 8.2 Neut % (Auto) Lymph % (Auto) Forrest % (Auto) Eos % (Auto) Baso % (Auto) Absolute Neuts (auto) Absolute Lymphs (auto) Absolute Monos (auto) Absolute Eos (auto) Absolute Basos (auto) Absolute Nucleated RBC Nucleated RBC % Sodium 139 Potassium 4.0 Chloride 107 Carbon Dioxide 24 Anion Gap 8 BUN 25 H Creatinine 1.15 Est GFR ( Amer) 74.2 Est GFR (Non-Af Amer) 61.3 BUN/Creatinine Ratio 21.7 H Glucose 104 H Calcium 9.1 Magnesium 1.9 Total Bilirubin 0.80 AST 28 ALT 23 Alkaline Phosphatase 64 Troponin I 0.01 Total Protein 6.3 L Albumin 4.0 Globulin 2.3 Albumin/Globulin Ratio 1.7 Triglycerides Cholesterol LDL Cholesterol HDL Cholesterol 02/25/18 02/25/18 05:54 05:54 WBC 5.8 RBC 4.42 Hgb 13.8 L Hct 42 MCV 94 MCH 31 MCHC 33 RDW 13 Plt Count 146 L MPV 8.3 Neut % (Auto) 64.4 Lymph % (Auto) 23.4 Forrest % (Auto) 9.1 Eos % (Auto) 2.7 Baso % (Auto) 0.4 Absolute Neuts (auto) 3.7 Absolute Lymphs (auto) 1.3 Absolute Monos (auto) 0.5 Absolute Eos (auto) 0.2 Absolute Basos (auto) 0 Absolute Nucleated RBC 0 Nucleated RBC % 0.1 Sodium 140 Potassium 3.8 Chloride 107 Carbon Dioxide 27 Anion Gap 6 BUN 24 Creatinine 1.13 Est GFR ( Amer) 75.7 Est GFR (Non-Af Amer) 62.6 BUN/Creatinine Ratio 21.2 H Glucose 100 Calcium 8.9 Magnesium Total Bilirubin AST ALT Alkaline Phosphatase Troponin I Total Protein Albumin Globulin Albumin/Globulin Ratio Triglycerides 239 Cholesterol 148 LDL Cholesterol 57 HDL Cholesterol 42.8 Diagnostic Imaging: CT head without contrast on 02/24 and 02/25: no acute intracranial abnormality. This study was personally reviewed. MRI brain without contrast completed on 02/24: small acute right thalamic infarction MRA head without contrast completed on 02/24: moderate -severe stenosis of bilateral M1-M2 segments of the MCA. TTE completed on 02/25/2018: normal EF 50-55%. Negative bubble study. There is mild dilatation of the ascending aorta. Assessment/Plan Mr. Hung Wheat is a 78-year-old man with history of HTN, DYS who presented [place] [facility] [place] transfer from [facility] with left hemiparesthesia. He was aspirin naive. 1. 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 2. Moderate-severe bilateral MCA vascular stenosis 3. Mild dilatation of the ascending aorta- this is an incidental finding. Defer to the primary team. Recommendations: - Start DAPT with aspirin 81 mg and Plavix 75 mg PO daily for 90 days then discontinue the Plavix therapy. - Repeat CTA head and neck without contrast in 3-6 months to evaluate for the degree of stenosis. He may need to go back on the DAPT after 90 days if he has any increase in the intracranial stenosis. - Increased atorvastatin to 80 mg nightly. The increase in atorvastatin is to achieve clot stabilizing effect rather than to lower the LDL as his LDL is within recommended range. I recommend keeping the high intensity statin for 3 months. - Educated the patient about secondary stroke prevention, closely monitoring his BP, and adapting a low sodium diet. - Ordered Hemoglobin A1C, TSH, and vitamin B12 to evaluate for other treatable metabolic conditions that may cause stroke. - Follow-up with Dr. Doan in 4-6 weeks. - Neurology will sign off but we are available for any questions or concerns. Discussed with the primary team.
--- NOTE | 2018-02-25 14:16 | PN ---
Subjective Date of Service: 02/25/18 Interval History: Mr. Wheat denies complaint other than a persistent numbness along the left side of his body. He is eager for discharge to home. Objective Active Medications: Acetaminophen (Tylenol Tab*) 650 mg PO Q4H PRN Al Hydrox/Mg Hydrox/Simethicone (Maalox Plus*) 30 ml PO Q6H PRN Aspirin (Aspirin Ec Tab*) 81 mg PO DAILY [facility] Atorvastatin Calcium (Lipitor*) 80 mg PO DAILY [facility] Clopidogrel Bisulfate (Plavix Tab*) 75 mg PO DAILY [facility] Diphenhydramine HCl (Benadryl Po*) 25 mg PO BEDTIME [facility] Heparin Sodium (Porcine) (Heparin Vial(*)) 5,000 units SUBCUT Q8HR [facility] Lisinopril (Prinivil Tab*) 5 mg PO DAILY [facility] Multivitamins (Theragran Tab*) 1 tab PO DAILY [facility] . Oxygen Devices in Use Now: None Appearance: Male sitting up in bed in NAD Eyes: No Scleral Icterus Ears/Nose/Mouth/Throat: Mucous Membranes Moist Neck: Trachea Midline Respiratory: Symmetrical Chest Expansion and Respiratory Effort, Clear to Auscultation Cardiovascular: NL Sounds; No Murmurs; No JVD, No Edema Abdominal: NL Sounds; No Tenderness; No Distention Extremities: No Edema Skin: No Rash or Ulcers Neurological: Alert and Oriented x 3 Nutrition: Taking PO's Result Diagrams: 02/25/18 05:54 02/25/18 05:54 Additional Lab and Data: . Diagnostic Imaging: . Assess/Plan/Problems-Billing Mr. Hung Wheat is a 78-year-old man with history of HTN, DYS who presented to [facility] yesterday as a transfer from [facility] with left hemiparesthesia. - Patient Problems (1) CVA (cerebral vascular accident) Comment: - no events noted on telemetry - Persistent left arm, face, leg numbness - Ct brain negative. MRI with acute vs subacute infarct in the right thalamus. MRA with severe stenosis B MCA. Echo with bubble study negative, - Appreciate neurology consultation - Continue aspirin and plavix x 90 days, then stop plavix but continue aspirin. Increase statin, continue increased lisinopril. Hgb A1c and vitamin B12 pending but no history of DM. TSH normal. - Follow up neurology outpatient. Repeat CTA head and neck in 3-6 months (2) Hypertension Comment: - SBP 140-150 - Continue lisinopril. (3) DVT prophylaxis (4) Full code status Comment: Status and Disposition: OBV. Discharge to home.
--- NOTE | 2018-02-26 04:57 | DS ---
CC: Dr. eTmpleton * [facility]: DATE OF ADMISSION: 02/24/18 DATE OF DISCHARGE: 02/25/18 PRIMARY CARE PHYSICIAN: Dr. Templeton. ATTENDING PHYSICIAN: Dr. Mariza Steward * (dictation provided by Tabby Pichardo NP ). PRIMARY DIAGNOSIS: Cerebrovascular accident. SECONDARY DIAGNOSES: 1. Hypertension. 2. Dyslipidemia. 3. History of prostate cancer. PAST SURGICAL HISTORY: 1. Prostatectomy. 2. Appendectomy. 3. Cholecystectomy. 4. Back surgery. 5. Cataract surgery with lens implants. MEDICATIONS AT THE TIME OF DISCHARGE: 1. Multivitamin and mineral 1 tab p.o. daily. 2. Lisinopril 10 mg p.o. daily. 3. Ibuprofen p.r.n. 4. Benadryl p.r.n. 5. Clopidogrel 75 mg p.o. daily. 6. Atorvastatin 80 mg p.o. daily. 7. Aspirin 81 mg p.o. daily. HOSPITAL COURSE: Mr. Wheat is a 78-year-old male, who presented to the emergency room on 02/24/18 with concern for left-sided numbness and tingling. Please see the dictated H and P from Kenia Appiah NP, for complete details. In brief , the patient states that he was shoveling snow when he began to notice numbness and tingling in his left arm and then throughout his left side. He was initially evaluated in the [facility] Emergency Room and as they did not have Neurology on staff, he was sent here to our hospital for evaluation. A CT braine was done at [facility] but I do not have the read here available at this time. Mr. Wheat was admitted to the hospital. He had an MRI of the brain, which showed the following: "Approximately 0.7 x 0.3 cm acute or subacute ischemic stroke at the right thalamus, negative for mass effect." He had labs, which showed no acute electrolyte abnormalities. His troponin was normal. His triglycerides were 239, cholesterol total 148, LDL 57, HDL 42.8. He had no white count/ leukocytosis. His vital signs were stable. Mr. Wheat's remaining workup included a carotid Doppler study, which showed the following: "Mild atherosclerotic plaque with less than 50% bilateral internal carotid artery stenosis. He had an MRA of the head, which showed no large vessel occlusion or stenosis at the posterior circulation to correspond with the right thalamic infarct. The posterior communicating artery may be extremely hypoplastic or aplastic, suggestion of high-grade approximately 70% stenosis at the more cephalad of the 2 dominant M2 branches of the right middle cerebral artery, suggestion of approximately 70% stenosis at the M1 segment of the left middle cerebral artery." The patient had a transthoracic echocardiogram, which showed an intact ejection fraction of 50% to 55% with abnormal left ventricular diastolic dysfunction noted with negative bubble study and normal valvular function. Mr. Wheat was seen in consultation by Dr. Maldonado from the neurology team and I refer you to his consultation note for complete details. In brief, he recommended that the patient go on aspirin and Plavix therapy x90 days. At the end of 90 days, consideration can be given to discontinuing Plavix but he should continue on aspirin. Dr. Maldonado recommends that the patient have a CTA of the head and neck to reevaluate the stenotic MCA areas and based on that testing, there could be consideration for continuation of Plavix beyond the 90 days. In addition, he is recommended that we increase lisinopril from 5 to 10 mg, which has been done as well as increase atorvastatin from 20 to 80 mg. The patient has had a hemoglobin A1c drawn, which is pending, which should be reviewed by his primary care physician. His TSH is normal. Vitamin B12 is pending as well. Mr. Wheat is medically stable for discharge to home. He will be following up with Dr. Templeton and with neurology outpatient. DISPOSITION: Home. DIET: Low fat, low salt. ACTIVITY: As tolerated. FOLLOWUP PLANS: 1. Please follow up with Dr. Templeton within the next week regarding his acute hospitalization. 2. Please follow up with [facility] Neurology or another neurologist of your choosing within the next 2 to 3 months for followup and consideration of repeat CTA head and neck in 3 to 6 months. TIME SPENT: Approximately 60 minutes was spent on the discharge of this patient , more than half the time was spent with the patient at the bedside reviewing the events leading up to this hospitalization, performing the physical examination, and reviewing the plan of care. TABBY PICHARDO NP [id number]/[facility] #: [id number] [place]
[2018-02-26] MEDS ORDERED: Atorvastatin* 80 MG TAB PO SCH (09:00)
== END 2018-02-25 14:57 | disposition home or self-care (01) ==
LOC: ED 14:17 → MEDTELE 17:11
PROVIDERS: ADMIT Internal Medicine; ATTEND Internal Medicine
DX: I63.9 Cerebral infarction, unspecified (principal); I10 Essential (primary) hypertension; E78.5 Hyperlipidemia, unspecified; Z85.46 Personal history of malignant neoplasm of prostate; Z79.82 Long term (current) use of aspirin; R20.0 Anesthesia of skin; Z90.89 Acquired absence of other organs; Z90.79 Acquired absence of other genital organ(s); Z90.49 Acquired absence of other specified parts of digestive tract
CPT/HCPCS: 36415; 70450; 70544; 70551; 80048; 80053; 80061; 82607; 83036; 83735; 84443; 84484; 85025; 85027; 93005; 93306; 93880; 96372; 99284; A9270-GY; G0378; G8978-GP-CH; G8979-GP-CH; G8980-GP-CH; J1644